=== PATIENT | male | born 1980 | race Caucasian/White ===

== ENCOUNTER 2022-04-10 06:00 | Outpatient (RCR) | payer BC, SELFPAY | END 2022-05-06 23:59 | disposition home or self-care (01) | LOC: TPT 06:00 | PROVIDERS: Referring Provider Orthopaedic Surgery; Visit Provider Orthopaedic Surgery | DX: S92.351A Displaced fracture of fifth metatarsal bone, right foot, initial encounter for closed fracture (principal); X58.XXXA Exposure to other specified factors, initial encounter; R26.81 Unsteadiness on feet | CPT/HCPCS: 97110; 97140; 97162 ==

== ENCOUNTER 2022-05-07 06:00 | Outpatient (RCR) | payer BC, SELFPAY | END 2022-06-06 23:59 | disposition home or self-care (01) | LOC: TPT 06:00 | PROVIDERS: Referring Provider Orthopaedic Surgery; Visit Provider Orthopaedic Surgery | DX: S92.351D Displaced fracture of fifth metatarsal bone, right foot, subsequent encounter for fracture with routine healing (principal); X58.XXXD Exposure to other specified factors, subsequent encounter; R26.81 Unsteadiness on feet | CPT/HCPCS: 97110; 97140 ==

== ENCOUNTER 2022-06-07 06:00 | Outpatient (RCR) | payer BC, SELFPAY | END 2022-07-03 23:59 | disposition home or self-care (01) | LOC: TPT 06:00 | PROVIDERS: Visit Provider Orthopaedic Surgery | DX: R26.81 Unsteadiness on feet (principal); S92.351D Displaced fracture of fifth metatarsal bone, right foot, subsequent encounter for fracture with routine healing; X58.XXXD Exposure to other specified factors, subsequent encounter | CPT/HCPCS: 97110; 97140 ==

== ENCOUNTER 2022-07-21 02:30 | Emergency (ER) | payer BC, SELFPAY ==
--- NOTE | 2022-07-21 02:31 | XRR_ITS ---
PROCEDURE INFORMATION: Exam: XR Chest Exam date and time: 07/21/2022 2:50 AM Age: 41 years old Clinical indication: Pain; Chest pressure; Additional info: Cp TECHNIQUE: Imaging protocol: Radiologic exam of the chest. Views: 1 view. COMPARISON: No relevant prior studies available. FINDINGS: Lungs: No consolidation. Pleural spaces: Unremarkable. No pleural effusion. No pneumothorax. Heart/Mediastinum: No cardiomegaly. Bones/joints: No acute fracture. XR/XR chest 1V portable [id number] IMPRESSION: No acute findings.
--- NOTE | 2022-07-21 02:31 | ECG_ITS ---
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 Measurements Intervals [place] Rate: 95 P: 56 MO: 156 QRS: 44 QRSD: 99 T: 29 QT: 351 QTc: 443 Interpretive Statements SINUS RHYTHM WITH SINUS ARRHYTHMIA No previous ECG available for comparison Electronically Signed On 07-22-2022 22:01:44 CDT by Agustín Alarcon M.D. [id number]
[2022-07-21 02:32] VITALS: BP 186/117; PULSE 97; RESP 18; TEMP 36.4; O2SAT 98
--- NOTE | 2022-07-21 02:53 | W.ED.CHESTPA ---
HPI - Chest Pain General: Chief Complaint: Chest Pain Stated Complaint: cp Time Seen by Provider: 07/21/22 02:31 Source: patient Mode of arrival: ambulatory Limitations: no limitations History of Present Illness: 41-year-old male states that he was in a conference in [facility] over the last 5 days he states he flew back today. States roughly 6 PM he started having some chest discomfort as a heaviness in his chest along with some slight dyspnea. He states his pain is currently 2 out of 10. He states he been having high blood pressure at home as well is hypertensive here. He denies any radiation of pain denies any diaphoresis no history of heart issues in the past. Associated symptoms: Deny abdominal pain, dyspnea, fever(s), nausea or vomiting Review of Systems Const: Denies: fever(s), chills, body aches or change in appetite Eyes: Denies: blurry vision or eye discomfort ENMT: Denies: throat pain or dental pain Card: Reports: chest pain Resp: Denies: dyspnea GI: Denies: abdominal pain, nausea, vomiting or diarrhea : Denies: dysuria Musc: Denies: neck pain or back pain Skin/Breast: Denies: rash Neuro: Denies: headache(s) Psych: Denies: depression Terry/Lymph: Denies: easy bruising All/Imm: Denies: urticaria PFSH ED PFSH: Medical History (Updated 07/21/22 @ 05:17 by Hayden Wallace MD) No pertinent past medical history Social History (Updated 07/21/22 @ 02:54 by Hayden Wallace MD) Substance/Drug Use: never Physical Exam Const: COMMON NORMALS: no acute distress, patient oriented x3 and healthy appearing HENMT: COMMON NORMALS: normocephalic and atraumatic HEAD & SCALP: normocephalic and atraumatic Eye: COMMON NORMALS: Equal, round and reactive pupils present and EOMs intact bilaterally PUPIL: Yes Equal, round and reactive pupils present Neck/C-Spine: COMMON NORMALS: full ROM and supple Chest: COMMONS NORMALS: normal inspection of the chest and normal palpation of entire chest wall Resp: COMMON NORMALS: normal respiratory effort, No retractions, No use of accessory muscles and clear to auscultation bilaterally AUSCULTATION: clear to auscultation bilaterally Cardio: COMMON NORMALS: regular rate, regular rhythm and No murmurs present (Cardio) RATE: regular rate RHYTHM: regular rhythm GI: COMMON NORMALS: Normal to inspection, nondistended, normoactive bowel sounds present, Soft to palpation, non-tender and no masses PALPATION: Yes Soft to palpation Extremity: COMMON NORMALS: normal to inspection and full ROM Neuro: COMMON NORMALS: patient oriented x3, moves all extremities and no focal motor deficits Psych: COMMON NORMALS: mental status grossly normal, Normal thought process present and cooperative THOUGHT PROCESS: Normal thought process present Skin: COMMON NORMALS: no rashes or lesions noted and no wounds GENERAL SKIN EXAM: no rashes or lesions noted Course Vital Signs: Vital signs: Vital Signs Temperature 97.6 F 07/21/22 02:32 Pulse Rate 81 07/21/22 04:11 Respiratory Rate 22 H 07/21/22 04:11 Blood Pressure 139/94 07/21/22 04:11 Pulse Oximetry 98 07/21/22 04:11 Oxygen Delivery Me thod 07/21/22 02:32 MDM - Chest Pain Medical Decision Making Patient presents for chest pain along with hypertension. His D-dimer is negative troponins are negative as well as no signs of acute coronary syndrome or pulm embolism or aortic dissection. He feels improved here we will start him on metoprolol for his high blood pressure he is to follow-up his PCP in 2 to 4 days and return to the ER for worsening he understands agrees to plan. Lab Data : 07/21/22 02:57 07/21/22 02:57 Radiology Impressions Chest X-Ray 07/21/22 02:31 IMPRESSION: No acute findings. Laboratory Results WBC 9.0 10^3/uL (4.0-10.0) 07/21/22 02:57 RBC 5.32 10^6/uL (4.1-5.3) H 07/21/22 02:57 Hgb 16.4 g/dL (11.7-16.6) 07/21/22 02:57 Hct 47.0 % (42.0-52.0) 07/21/22 02:57 MCV 88.3 fl (80-94) 07/21/22 02:57 MCH 30.8 pg (28.0-34.0) 07/21/22 02:57 MCHC 34.9 g/dL (30.0-36.0) 07/21/22 02:57 RDW 12.5 % (12.1-15.1) 07/21/22 02:57 Plt Count 234 10^3/cmm (130-400) 07/21/22 02:57 MPV 10.5 fL (7.4-10.4) H 07/21/22 02:57 Neut % (Auto) 58.2 % 07/21/22 02:57 Lymph % (Auto) 29.0 % 07/21/22 02:57 [place] % (Auto) 8.4 % 07/21/22 02:57 Eos % (Auto) 3.0 % 07/21/22 02:57 Baso % (Auto) 0.8 % 07/21/22 02:57 Neut # (Auto) 5.27 10^3/uL (1.8-7.7) 07/21/22 02:57 Lymph # (Auto) 2.6 10^3/uL (0.8-4.8) 07/21/22 02:57 [place] # (Auto) 0.8 10^3/uL (0.2-0.9) 07/21/22 02:57 Eos # (Auto) 0.3 10^3/uL (0.0-0.8) 07/21/22 02:57 Baso # (Auto) 0.1 10^3/uL (0.0-0.1) 07/21/22 02:57 Nucleated RBC % (auto) 0 % 07/21/22 02:57 Nucleated RBCs # 0.0 /100WBC 07/21/22 02:57 D-Dimer 0.30 ug/mIFEU (0-0.59) 07/21/22 02:57 Sodium 130 mmol/L (136-145) L 07/21/22 02:57 Potassium 3.4 mmol/L (3.5-5.1) L 07/21/22 02:57 Chloride 97 mmol/L (98-107) L 07/21/22 02:57 Carbon Dioxide 24 mmol/L (22-29) 07/21/22 02:57 Anion Gap 12.4 (5-19) 07/21/22 02:57 BUN 13 mg/dL (6-20) 07/21/22 02:57 Creatinine 0.9 mg/dL (0.7-1.2) 07/21/22 02:57 GFR Calculation 93.5 mL/min (90-130) 07/21/22 02:57 Glucose 118 mg/dL (65-115) H 07/21/22 02:57 Calculated Osmolality 271 mOsm/kg (285-295) L 07/21/22 02:57 Calcium 9.7 mg/dL (8.5-10.5) 07/21/22 02:57 Total Bilirubin 0.5 mg/dL (0.15-1.2) 07/21/22 02:57 AST 29 U/L (0-40) 07/21/22 02:57 ALT 59 U/L (0-41) H 07/21/22 02:57 Alkaline Phosphatase 142 U/L (40-130) H 07/21/22 02:57 Troponin T Baseline 6 ng/L (0-15) 07/21/22 02:57 Troponin T 120 Minute 8.47 ng/L (0-15) 07/21/22 04:43 Delta Troponin T 2.47 ABS# (0-10) 07/21/22 04:43 Total Protein 7.4 g/dL (6.6-8.7) 07/21/22 02:57 Albumin 4.5 g/dL (3.5-5.2) 07/21/22 02:57 Globulin 2.9 g/dL (1.3-4.6) 07/21/22 02:57 EKG Data EKG 1: I personally reviewed and interpreted this EKG as follows: EKG interpretation date: 07/21/22 EKG interpretation time: 02:47 Interpretation: nsr hr [address] or t wave abnormalities qrs 99 qtc 404 EKG 2: I personally reviewed and interpreted this EKG as follows: EKG interpretation date: 07/21/22 EKG interpretation time: 04:09 Interpretation: nsr hr [address] or t wave abnormalities qrs 106 qtc 412 Discharge Plan Discharge Patient Disposition: Home Clinical Impression: Chest pain, Hypertension Prescriptions: New metoprolol succinate 25 mg capsule,sprinkle,ER 24hr 25 mg PO DAILY Qty: 30 0RF Discharge Orders: Discharge ED (Routine); Ordered 07/21/22 Ordered By: Hayden Wallace Referrals: [facility]yn[facility], HEALTH POLICY MANAGER [Primary Care Provider] - 1-3 days Discharge Diet: Advance as tolerated Discharge Activity: Resume usual activity Patient Instructions: Chest Pain (ED) Coding Level of Care Code ED Apartment Assistant Manager for Chg Fwd Exam Comprehensive
[2022-07-21 03:06] LABS: Basophils # 0.1 10^3/uL (0.0-0.1); Basophils % 0.8 %; Eosinophils # 0.3 10^3/uL (0.0-0.8); Hemoglobin 16.4 g/dL (11.7-16.6); Lymphocytes # 2.6 10^3/uL (0.8-4.8); Mean Corpuscular HGB Conc 34.9 g/dL (30.0-36.0); Mean Corpuscular Hemoglobin 30.8 pg (28.0-34.0); Mean Corpuscular Volume 88.3 fl (80-94); Mean Platelet Volume 10.5 fL (7.4-10.4); Monocytes # 0.8 10^3/uL (0.2-0.9); Monocytes % 8.4 %; Neutrophils # 5.27 10^3/uL (1.8-7.7); Neutrophils % 58.2 %; Nucleated Red Blood Cells % 0 %; Platelet Count 234 10^3/cmm (130-400); Red Blood Count 5.32 10^6/uL (4.1-5.3); Red Cell Distribution Width 12.5 % (12.1-15.1)
[2022-07-21] MEDS: labetalol 5 mg/mL SDV 20mL 10 MG IVP (03:09)
[2022-07-21 03:10] VITALS: BP 153/106; PULSE 80; RESP 20; O2SAT 97
[2022-07-21] MEDS: aspirin 81 mg Chew Tablet 324 MG PO (03:12)
[2022-07-21 03:20] VITALS: BP 145/97; PULSE 80; RESP 21; O2SAT 95
[2022-07-21 03:32] LABS: Alanine Aminotransferase 59 U/L (0-41); Albumin Level 4.5 g/dL (3.5-5.2); Alkaline Phosphatase 142 U/L (40-130); Anion Gap 12.4 (5-19); Aspartate Amino Transferase 29 U/L (0-40); Blood Urea Nitrogen 13 mg/dL (6-20); Calcium 9.7 mg/dL (8.5-10.5); Carbon Dioxide 24 mmol/L (22-29); Chloride 97 mmol/L (98-107); Globulin 2.9 g/dL (1.3-4.6); Glomerular Filtration Rate 93.5 mL/min (90-130); Glucose 118 mg/dL (65-115); Osmolality Calculated 271 mOsm/kg (285-295); Potassium 3.4 mmol/L (3.5-5.1); Sodium 130 mmol/L (136-145); Total Bilirubin 0.5 mg/dL (0.15-1.2); Total Protein 7.4 g/dL (6.6-8.7)
[2022-07-21 03:33] LABS: Troponin(5th) Baseline 6 ng/L (0-15)
[2022-07-21 03:34] VITALS: BP 134/100; PULSE 74; RESP 18; O2SAT 94
--- NOTE | 2022-07-21 04:09 | ECG_ITS ---
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 Measurements Intervals [place] Rate: 75 P: 46 HI: 173 QRS: 10 QRSD: 106 T: 23 QT: 382 QTc: 429 Interpretive Statements SINUS RHYTHM Compared to ECG 07/21/2022 02:47:46 Sinus arrhythmia no longer present Electronically Signed On 07-22-2022 22:11:21 CDT by Agustín Alarcon M.D. [id number]
[2022-07-21 04:11] VITALS: BP 139/94; PULSE 81; RESP 22; O2SAT 98
[2022-07-21 05:10] LABS: Troponin 5 2HR 8.47 ng/L (0-15)
[2022-07-21] MEDS: lidocaine 2% viscous 15 ML, aluminum-mag hydrox-simethicon 30 ML, sucralfate oral liq 1 GM PO (05:13)
[2022-07-21 05:25] LABS: Troponin 5 2HR Delta 2.47 ABS# (0-10)
== END 2022-07-21 05:34 | disposition home or self-care (01) ==
PROVIDERS: Emergency Provider Emergency Medicine; PCP Nurse Practitioner Family
DX: R07.9 Chest pain, unspecified (principal); I10 Essential (primary) hypertension
CPT/HCPCS: 71045; 80053; 84484; 85025; 85378; 93005; 96374; 99285; J3490